=== PATIENT | male | born 1960 | race Caucasian/White ===

== ENCOUNTER → 2016-11-29 | Outpatient (CLI) | payer OTHER ==
--- NOTE | 2016-11-29 19:30 | MR ---
EXAMINATION TYPE: MR shoulder LT wo con DATE OF EXAM: 11/29/2016 COMPARISON: NONE HISTORY: Pain Left Shoulder for approx 5 months TECHNIQUE: Multiplanar, multisequence imaging of the left shoulder is performed without contrast. FINDINGS: Rotator Cuff: Is a 11 mm partial through thickness tear of the supraspinatus tendon with greater invo lvement of the anterior fibers. No retraction. Subscapularis tendon intact. Infraspinatus tendon demo nstrates thickening and increased intrasubstance signal compatible with tendinosis and partial intras ubstance tear. No retraction. Acromioclavicular Joint: Hypertrophic change of the AC joint. There is mild impingement. Glenohumeral Joint: Joint spaces preserved. Glenohumeral ligaments intact. Labrum: Findings are suggestive of SLAP tear Biceps Tendon: The long head of biceps is in normal location within bicipital groove. There is increa sed fluid within the tendon sheath and increased substance within the intracapsular portion of the te ndon compatible tendinosis. Bone marrow signal: No focal abnormal marrow signal is appreciated. IMPRESSION: 1. There is a 11 mm partial through thickness tear supraspinatus tendon with no retraction. 2. Tendinopathy partial intrasubstance tear distal margin infraspinatus tendon. 3. SLAP tear 4. Impingement secondary to hypertrophic change of the AC joint. 5. Bicipital tendinosis.
== END | disposition home or self-care (01) ==
LOC: RADMRIMAIN 17:45
PROVIDERS: ATTEND Family Medicine
DX: S46.012A Strain of muscle(s) and tendon(s) of the rotator cuff of left shoulder, initial encounter (principal); S43.432A Superior glenoid labrum lesion of left shoulder, initial encounter; M75.22 Bicipital tendinitis, left shoulder; M25.812 Other specified joint disorders, left shoulder